=== PATIENT | male | born 1975 | race Caucasian/White ===

== ENCOUNTER 2019-07-17 22:14 | Emergency (ER) | payer MEDICAID ==
[~2019-07-17] VITALS: Ht 175.3 cm; Wt 86.2 kg
--- NOTE | 2019-07-17 22:55 | NUR ---
CALLED PATIENT IN WAITING ROOM. NO RESPONSE.
--- NOTE | 2019-07-18 00:14 | NUR ---
CALLED [facility] TO FILE REPORT INCIDENT #[id number].
[2019-07-18] MEDS ORDERED: HYDROCODONE/APAP 5/325MG 1 EACH TABLET PO ONE (00:30)
[2019-07-18] MEDS ORDERED: HYDROCODONE/APAP 5/325MG 1 EACH TABLET ONE (01:12)
[2019-07-18 01:19] VITALS: BP 123/76
--- NOTE | 2019-07-18 03:11 | NUR ---
Patient discharged to home in stable condition. Written and verbal after care instructions given. Patient verbalizes understanding of instruction. pt reported he is not homeless and has place to stay. pt was provided w/ a tap card for transportation.
== END 2019-07-18 03:12 | disposition home or self-care (01) ==
LOC: ER 22:17
DX: S40.211A Abrasion of right shoulder, initial encounter (principal); F17.200 Nicotine dependence, unspecified, uncomplicated; Y00.XXXA Assault by blunt object, initial encounter; Y93.89 Activity, other specified; Y92.89 Other specified places as the place of occurrence of the external cause; Y99.8 Other external cause status
CPT/HCPCS: 71100-TC; 73030-TC